=== PATIENT | female | born 1955 | race Caucasian/White ===

== ENCOUNTER 2017-12-18 08:55 | Day surgery (SDC) | payer BC, OTHER ==
[~2017-12-18 08:55] MED LIST: KETOROLAC TROMETHAMINE 0.45% 4 DROP/0.4 ML DROPERETTE OD PRN
[2017-12-18] MEDS ORDERED: CHONDR SU A NA/HYALUR INTRAOC KIT (SURGICARE) ONE (09:05)
[2017-12-18] MEDS ORDERED: EPINEPHRINE INJ/PF 1 MG/1 ML AMPULE ONE (09:05)
[2017-12-18] MEDS ORDERED: LIDOCAINE 1% INJ-PF (10 MG/ML) 30 ML SDV ONE (09:05)
[2017-12-18] MEDS: BESIFLOXACIN HCL 0.6% OPH SUSP 5 ML BOTTLE OD PRN ×4 (09:40→10:48)
[2017-12-18] MEDS: CYCLOPENTOLATE 0.2%/PHENYLEPHRINE 1% OPH SOLN 2 ML OD PRN ×3 (09:40→10:04)
[2017-12-18] MEDS: TETRACAINE HCL 0.5% OPH SOLN 4 ML OD PRN ×3 (09:40→10:18)
[2017-12-18] MEDS: TROPICAMIDE 1% OPH SOLN 3 ML OD PRN ×3 (09:40→10:05)
[2017-12-18] MEDS ORDERED: FENTANYL CITRATE INJ/PF 100 MCG/2 ML AMPUL ONE (10:04)
[2017-12-18] MEDS ORDERED: MIDAZOLAM 2 MG/2 ML INJ ONE (10:04)
[2017-12-18] MEDS ORDERED: TRYPAN BLUE 0.06 % OPH SOLN 0.5 ML DISP.SYRIN ONE (10:30)
[2017-12-18] MEDS ORDERED: LIDOCAINE 1%/PHENYLEPHRINE 1.5% 1 ML VIAL ONE (10:32)
--- NOTE | 2017-12-19 09:17 | [facility] OPERATIVE REPORT E ---
[facility] Operative Report NAME: LYNDON DOMINGUEZ AGE: 62Y DATE OF SURGERY: 12/18/2017 ROOM: PREOPERATIVE DIAGNOSIS: MATURE CATARACT, RIGHT EYE. POSTOPERATIVE DIAGNOSIS: MATURE CATARACT, RIGHT EYE. OPERATION: Complex cataract extraction with use of Trypan Blue dye due to poor visualization of the red reflex and insertion of an IOL of the right eye. SURGEON: FANTASMA JIMENEZ M.D. ANESTHESIA: Topical. PROCEDURE: After obtaining appropriate consent, the patient's right eye was prepped and draped in sterile fashion as well as the surgeon in a sterile manner and cataract surgery was started. First a paracentesis blade was used to make a side-port incision. Viscoelastic was used to inflate the anterior chamber. Next a 2.4 mm incision was made with a 2.4 mm blade, clear corneal temporally. A continuous capsulorrhexis was made using a cystotome and Utrata forceps. Following this hydrodissection was carried out to make the lens fully loose and mobile and it was rotated 90 degrees. Following this, a jyltsi-zlq-uxscfqn technique was used to phacoemulsify the lens with a CDE of 33.37. The remaining cortex was removed with irrigation/aspiration. Provisc was instilled into the capsular bag to inflate the bag. A SN60WF, 14.0 diopter lens was placed. The remaining viscoelastic material was removed with irrigation/aspiration. Following this, the incision was found to be watertight. Besivance was instilled into the eye and a protective shield was placed over the eye. The patient returned to the postoperative recovery in stable condition. Prior to making the capsulorrhexis Trypan Blue dye was used to stain the anterior capsule due to poor red reflex. DICTATING PHYSICIAN: FANTASMA JIMENEZ M.D. [id number] PHY#: [id number] ID: [id number] JOB#: [id number] ACCT: [id number] cc:FANTASMA JIMENEZ M.D. >
--- NOTE | 2017-12-19 09:22 | [facility] DISCHARGE SUMMARY E ---
[facility] Discharge Summary NAME: LYNDON DOMINGUEZ AGE: 62Y ADMITTED: 12/18/2017 DISCHARGED: 12/18/2017 DIAGNOSIS: MATURE CATARACT, RIGHT EYE. SUMMARY: This is a 62-year-old female who underwent cataract extraction of the right eye. This was a complex cataract extraction with use of Trypan Blue dye due to it being a mature wide cataract. She underwent surgery because she was unable to drive secondary to blurred vision and trouble seeing words on the television. DISCHARGE INSTRUCTIONS: The patient is to be on a regular diet, no bending at the waist, and no heavy lifting. She should use her Besivance, Ilevro, and Durezol at 3 p.m. and 8 p.m. and sleep with a rigid shield. I will see her for her 1-day postoperative tomorrow. DICTATING PHYSICIAN: FANTASMA JIMENEZ M.D. [id number] PHY#: [id number] ID: [id number] JOB#: [id number] ACCT: [id number] cc:FANTASMA JIMENEZ M.D. >
== END 2017-12-18 11:38 | disposition home or self-care (01) ==
LOC: SC 08:55
PROVIDERS: ATTEND Internal Medicine
DX: H25.89 Other age-related cataract (principal); F17.210 Nicotine dependence, cigarettes, uncomplicated
CPT/HCPCS: 66984; V2632; J2250; J3490 ×4; J0171; J3010; J2370; 142

== ENCOUNTER 2018-01-11 09:27 | Day surgery (SDC) | payer BC, OTHER ==
[~2018-01-11 09:27] MED LIST changes: -KETOROLAC TROMETHAMINE 0.45% 4 DROP/0.4 ML DROPERETTE OD PRN; +KETOROLAC TROMETHAMINE 0.45% 4 DROP/0.4 ML DROPERETTE OS PRN
[2018-01-11] MEDS: BESIFLOXACIN HCL 0.6% OPH SUSP 5 ML BOTTLE OS PRN ×4 (09:52→10:50)
[2018-01-11] MEDS: CYCLOPENTOLATE 0.2%/PHENYLEPHRINE 1% OPH SOLN 2 ML OS PRN ×3 (09:52→10:15)
[2018-01-11] MEDS: TETRACAINE HCL 0.5% OPH SOLN 4 ML OS PRN ×4 (09:52→10:29)
[2018-01-11] MEDS: TROPICAMIDE 1% OPH SOLN 3 ML OS PRN ×3 (09:52→10:15)
[2018-01-11] MEDS ORDERED: TRYPAN BLUE 0.06 % OPH SOLN 0.5 ML DISP.SYRIN ONE (10:02)
[2018-01-11] MEDS ORDERED: MIDAZOLAM 2 MG/2 ML INJ ONE (10:11)
[2018-01-11] MEDS: EPINEPHRINE INJ/PF 1 MG/1 ML AMPULE ONE ×2 (10:37)
[2018-01-11] MEDS: LIDOCAINE 1% INJ-PF (10 MG/ML) 30 ML SDV ONE ×2 (10:37)
[2018-01-11] MEDS: CHONDR SU A NA/HYALUR INTRAOC KIT (SURGICARE) ONE ×2 (10:37)
--- NOTE | 2018-01-11 19:42 | [facility] OPERATIVE REPORT E ---
[facility] Operative Report NAME: LYNDON DOMINGUEZ AGE: 62Y DATE OF SURGERY: 01/11/2018 ROOM: PREOPERATIVE DIAGNOSIS: OTHER AGE-RELATED CATARACT OF THE LEFT EYE. POSTOPERATIVE DIAGNOSIS: OTHER AGE-RELATED CATARACT OF THE LEFT EYE. OPERATION: Complex cataract extraction with use of Trypan Blue dye. SURGEON: FANTASMA JIMENEZ M.D. ANESTHESIA: Topical. PROCEDURE: After obtaining appropriate consent, the patient's left eye was prepped and draped in sterile fashion as well as the surgeon in a sterile manner and cataract surgery was started. First a paracentesis blade was used to make a side-port incision. Viscoelastic was used to inflate the anterior chamber. Next a 2.4 mm incision was made with a 2.4 mm blade, clear corneal temporally. A continuous capsulorrhexis was made using a cystotome and Utrata forceps. Following this hydrodissection was carried out to make the lens fully loose and mobile and it was rotated 90 degrees. Following this, a kfwtcd-ptq-yvhllyi technique was used to phacoemulsify the lens with a CDE of 20.87. The remaining cortex was removed with irrigation/aspiration. Provisc was instilled into the capsular bag to inflate the bag. A SN60WF, 13.5 diopter lens was placed. The remaining viscoelastic material was removed with irrigation/aspiration. Following this, the incision was found to be watertight. Besivance was instilled into the eye and a protective shield was placed over the eye. The patient returned to the postoperative recovery in stable condition. Prior to making the capsulorrhexis Trypan Blue dye was used to stain the anterior capsule due to poor red reflex due to the density of the lens. DICTATING PHYSICIAN: FANTASMA JIMENEZ M.D. [id number] PHY#: [id number] ID: [id number] JOB#: [id number] ACCT: [id number] cc:FANTASMA JIMENEZ M.D. >
--- NOTE | 2018-01-11 19:47 | [facility] DISCHARGE SUMMARY E ---
[facility] Discharge Summary NAME: LYNDON DOMINGUEZ AGE: 62Y ADMITTED: 01/11/2018 DISCHARGED: 01/11/2018 DIAGNOSIS: Other age-related cataract, left eye, requiring Trypan Blue dye. SUMMARY: This is a 62-year-old female who underwent complex cataract extraction, left eye. The patient underwent surgery because she was having glare and difficulty seeing signs and television. DISCHARGE INSTRUCTIONS: She should be on a regular diet, no bending at her waist, and no heavy lifting. She should use her Besivance, Ilevro, and Durezol at 3 p.m. and 8 p.m. and sleep with a rigid shield. I will see her for her 1-day postoperative tomorrow. DICTATING PHYSICIAN: FANTASMA JIMENEZ M.D. 1209M [id number] PHY#: [id number] ID: [id number] JOB#: [id number] ACCT: [id number] cc:FANTASMA JIMENEZ M.D. >
== END 2018-01-11 11:34 | disposition home or self-care (01) ==
LOC: SC 09:27
PROVIDERS: ATTEND Internal Medicine
DX: H25.89 Other age-related cataract (principal)
CPT/HCPCS: 66984; V2632; J2250; J3490 ×4; J0171; 142